=== PATIENT | female | born 1970 | race Caucasian/White ===

== ENCOUNTER → 2021-10-27 | Outpatient (CLI) | payer BC ==
[~2021-10-27] MED LIST: ASPIR-LOW81 MG PO; COREG 3.125M3.125 MG PO; HORMONE CREAM TOP; HYDROXYZINE HCL50 MG PO; LIPITOR TAB 2020 MG PO; METOPROLOL SUCC25 MG PO; ZOLOFT100 MG PO
== END ==
LOC: KOH-I 08:15
DX: R94.5 Abnormal results of liver function studies (principal); R74.8 Abnormal levels of other serum enzymes; K76.0 Fatty (change of) liver, not elsewhere classified
CPT/HCPCS: 76705